=== PATIENT | female | born 1950 | race American Indian/Alaskan Native ===

== ENCOUNTER 2017-08-02 16:52 | Emergency (ER) | payer OTHER ==
[2017-08-02 17:42] VITALS: BP 152/100
[2017-08-02 18:59] LABS: Basophils # (Auto) 0.1 K/mm3 (0.0-0.1); Basophils % (Auto) 0.6 % (0.0-1.8); Eosinophils # (Auto) 0.2 K/mm3 (0.0-0.4); Eosinophils % (Auto) 2.1 % (0.0-4.3); Hematocrit 39.4 % (30.3-42.9); Hemoglobin 12.5 gm/dl (10.1-14.3); Lymphocytes # (Auto) 4.2 K/mm3 (1.2-5.4); Lymphocytes % (Auto) 47.7 % (13.4-35.0); Mean Corpuscular HGB Conc 32 % (30-34); Mean Corpuscular Hemoglobin 30 pg (28-32); Mean Corpuscular Volume 94 fl (79-97); Monocytes # (Auto) 0.9 K/mm3 (0.0-0.8); Monocytes % (Auto) 10.8 % (0.0-7.3); Platelet Count 294 K/mm3 (140-440); Red Blood Count 4.21 M/mm3 (3.65-5.03)
[2017-08-02 19:23] LABS: BUN/Creatinine Ratio 10; Blood Urea Nitrogen 8 mg/dL (7-17); Calcium 9.8 mg/dL (8.4-10.2); Hemolysis Index 20
== END 2017-08-02 20:50 | disposition left against medical advice (07) ==
LOC: ED 16:52
DX: J11.1 Influenza due to unidentified influenza virus with other respiratory manifestations (principal); Z53.21 Procedure and treatment not carried out due to patient leaving prior to being seen by health care provider
CPT/HCPCS: 36415; 80048; 84484; 85025; 93005; 93010

== ENCOUNTER 2018-01-15 22:19 | Emergency (ER) | payer MEDICARE, OTHER ==
[2018-01-15 22:39] VITALS: BP 166/86
[2018-01-15] MEDS ORDERED: BOOSTRIX IM ONE (22:56)
--- NOTE | 2018-01-15 22:58 | Emergency Department Report ---
ED General Adult HPI - General Chief complaint: Head Injury Stated complaint: FALL/HEAD PAIN Time Seen by Provider: 01/15/18 22:40 Source: patient, family, EMS (ems notes not available at time of chart dictation) Mode of arrival: Stretcher Limitations: No Limitations - History of Present Illness Initial comments: This is a 67-year-old female who is not known to this provider previously, who presents to the ER after mechanical trip and fall. The patient denies symptoms prior to the fall. The patient indicates that while falling, she stretched her right thumb. She also landed on her right temporal region. She landed on the right side of her head. She denies midline neck pain, chest pain, abdominal pain, shortness of breath, weakness, numbness, ataxia. The patient can't recall her last tetanus vaccination. She only takes aspirin. -: Sudden Location: head, right, upper extremity Radiation: non-radiation Quality: aching Consistency: constant Improves with: rest Worsens with: movement Associated Symptoms: headaches. denies: confusion, chest pain, cough, diaphoresis, fever/chills, loss of appetite, malaise, nausea/vomiting, shortness of breath, syncope, weakness - Related Data Home Medications Medication Instructions Recorded Confirmed Last Taken B12/Levomefolate Calcium/B-6 1 each PO QDAY 06/01/14 02/23/16 1 Day Ago [Foltx Tablet] ~02/21/16 Hydralazine HCl [hydrALAZINE] 75 mg PO TID 06/01/14 02/23/16 1 Day Ago ~02/21/16 Acetaminophen [Tylenol] 500 mg PO BID 02/22/16 02/23/16 1 Day Ago ~02/21/16 Aspirin [Aspirin TAB] 325 mg PO QDAY 02/22/16 02/23/16 1 Day Ago ~02/21/16 HYDROcodone/APAP 10-325 [[place] 1 each PO BID 02/22/16 02/23/16 1 Day Ago 10/325] ~02/21/16 Previous Rx's Medication Instructions Recorded Last Taken Type Acetaminophen [Tylenol Arthritis] 650 mg PO Q6HR PRN #30 tablet.er 01/16/18 Unknown Rx Ibuprofen [Motrin] 600 mg PO Q8H PRN #30 tablet 01/16/18 Unknown Rx Allergies Allergy/AdvReac Type Severity Reaction Status Date / Time No Known Allergies Allergy Verified 01/15/18 22:39 ED Review of Systems ROS: Stated complaint: FALL/HEAD PAIN Other details as noted in HPI Constitutional: denies: fever Eyes: denies: eye discharge ENT: denies: epistaxis Respiratory: denies: cough Cardiovascular: denies: chest pain Gastrointestinal: denies: abdominal pain Musculoskeletal: arthralgia, myalgia Skin: lesions Neurological: headache. denies: weakness, numbness, paresthesias, confusion ED Past Medical Hx - Past Medical History Previous Medical History?: Yes Hx Hypertension: Yes Hx Heart Attack/AMI: No Hx Congestive Heart Failure: No Hx Diabetes: Yes (borderline) Hx Deep Vein Thrombosis: No Hx Pulmonary Embolism: No Hx GERD: No Hx Liver Disease: No Hx Renal Disease: No Hx Sickle Cell Disease: No Hx Arthritis: Yes Hx Headaches / Migraines: No Hx Seizures: No Hx Kidney Stones: No Hx Asthma: No Hx COPD: Yes Hx Tuberculosis: No Hx Dementia: No Hx HIV: No Additional medical history: Abdomial aneurysm, Pituitary Tumor. cirrhosis, bronchitis - Surgical History Hx Coronary Stent: No Hx Open Heart Surgery: Yes (tumor removed from heart. No bypass) Hx Pacemaker: No Hx Internal Defibrillator: No Hx Cholecystectomy: Yes Hx Appendectomy: No Hx Breast Surgery: No Additional Surgical History: spleenectomy, knee replacement, arm surgery, bilateral total knee replacement - Social History Smoking Status: Former Smoker Substance Use Type: None - Medications Home Medications: Home Medications Medication Instructions Recorded Confirmed Last Taken Type B12/Levomefolate Calcium/B-6 1 each PO QDAY 06/01/14 02/23/16 1 Day Ago History [Foltx Tablet] ~02/21/16 Hydralazine HCl [hydrALAZINE] 75 mg PO TID 06/01/14 02/23/16 1 Day Ago History ~02/21/16 Acetaminophen [Tylenol] 500 mg PO BID 02/22/16 02/23/16 1 Day Ago History ~02/21/16 Aspirin [Aspirin TAB] 325 mg PO QDAY 02/22/16 02/23/16 1 Day Ago History ~02/21/16 HYDROcodone/APAP 10-325 [[place] 1 each PO BID 02/22/16 02/23/16 1 Day Ago History 10/325] ~02/21/16 Acetaminophen [Tylenol Arthritis] 650 mg PO Q6HR PRN #30 tablet.er 01/16/18 Unknown Rx Ibuprofen [Motrin] 600 mg PO Q8H PRN #30 tablet 01/16/18 Unknown Rx ED Physical Exam - General Limitations: No Limitations General appearance: alert, in no apparent distress - Head Head exam: Present: normocephalic. Absent: atraumatic (there is right temporal hematoma with a punctate skin avulsion) - Eye Eye exam: Present: normal appearance, PERRL, EOMI, other (visual acuity intact to finger counting, color perception, reading at a close distance). Absent: nystagmus - ENT ENT exam: Present: normal exam, normal orophraynx, mucous membranes moist, TM's normal bilaterally (there is no hemotympanum. There is no nasal septal hematoma ), normal external ear exam - Neck Neck exam: Present: normal inspection, full ROM. Absent: tenderness, meningismus - Respiratory Respiratory exam: Present: normal lung sounds bilaterally. Absent: respiratory distress, chest wall tenderness - Cardiovascular Cardiovascular Exam: Present: regular rate, normal rhythm, normal heart sounds. Absent: systolic murmur, diastolic murmur, rubs, gallop - GI/Abdominal GI/Abdominal exam: Present: soft. Absent: distended, tenderness, guarding, rebound, rigid, pulsatile mass - Extremities Exam Extremities exam: Present: normal inspection, tenderness (there is tenderness at the base of the right thumb. Opposition is intact. Thumb abduction and extension are limited secondary to pain), normal capillary refill, other (2+ pulses noted in the bilateral upper, lower extremities. Compartments soft. No long bony tenderness. The pelvis is stable.). Absent: pedal edema, joint swelling, calf tenderness - Back Exam Back exam: Present: normal inspection, full ROM. Absent: tenderness, CVA tenderness (R), paraspinal tenderness, vertebral tenderness - Neurological Exam Neurological exam: Present: alert, oriented X3, CN II-XII intact, other ( Extraocular movements intact. Tongue midline. No facial droop. Facial sensation intact to light touch in the V1, V2, V3 distribution bilaterally. 5 and 5 strength in 4 extremities.. Sensation is intact to light touch in 4 extremities.). Absent: motor sensory deficit - Psychiatric Psychiatric exam: Present: normal affect, normal mood - Skin Skin exam: Present: warm, abrasion, ecchymosis. Absent: rash ED Course Vital Signs 01/15/18 22:20 Temperature 98.6 F Pulse Rate 76 Respiratory 18 Rate Blood Pressure 166/86 O2 Sat by Pulse 96 Oximetry - Reevaluation(s) Reevaluation #1: 01/15/18 23:05 Differential diagnosis, including but not limited to: Intracranial injury, cervical spine injury, hematoma, ligamentous injury, hand fracture, hand dislocation Assessment and plan: 67-year-old female status post mechanical fall. She is clinically sober at this time. She has a GCS of 15. There is no midline cervical spine tenderness. She also has right hand/thumb pain with a possible hyperextension mechanism. She declines pain medication. She has a punctate lesion on her right temporal region and does not want sutures. Noncontrast CT scan of the brain and cervical spine pending. Tetanus vaccination is pending. X-ray of the right hand and wrist pending, along with placement of a right wrist splints. Assuming no serious injuries, patient will be discharged home with her . She'll need to follow up with orthopedics/hand for her right upper extremity wound. I also discussed signs and symptoms of concussion with the patient's . He verbalized understanding. I also discussed return precautions, and verbalize understanding. Reevaluation #2: 01/16/18 00:15 CT scan of the brain, cervical spine negative for acute disease. X-rays of the hand, wrist showed DJD, orthopedic hardware, and proximal thumb fracture. Patient was given pain medication after her requests and will be referred to outpatient orthopedics. ED Medical Decision Making - Lab Data Vital Signs 01/15/18 22:20 Temperature 98.6 F Pulse Rate 76 Respiratory 18 Rate Blood Pressure 166/86 O2 Sat by Pulse 96 Oximetry - Radiology Data Radiology results: report reviewed, image reviewed Noncontrast CT scan of the brain, cervical spine negative for acute disease. X- ray of the right hand, right wrist demonstrated a proximal right thumb fracture with DJD. Otherwise, no obvious disease. Critical care attestation.: If time is entered above; I have spent that time in minutes in the direct care of this critically ill patient, excluding procedure time. ED Disposition Clinical Impression: Thumb injury, Head injury Disposition: DC-01 TO HOME OR SELFCARE Is pt being admited?: No Does the pt Need Aspirin: No Condition: Stable Instructions: Minor Head Injury (ED), Finger Sprain (ED) Additional Instructions: Rest, and avoid heavy lifting. Avoid strenuous physical activity. Keep the thumb splint in place. Follow up with the orthopedist within the next 5 days for repeat evaluation of the right thumb. Patient may have a ligamentous injury to the right thumb, may require occupational therapy or physical therapy. Patient should avoid contact sports, strenuous physical activities and heavy lifting. Patient also had x-rays which demonstrated mild thumb facture. Patient should engage in physical activities as she physically feels comfortable to do. The patient may have a concussion, and symptoms of concussion include lightheadedness, fatigue, forgetfulness. Patient may continue current outpatient medications. Return to the ER right away with new pain, worsening pain, migration of pain, projectile vomiting, change in mental status, confusion, weakness, numbness, inability to tolerate liquid feeds. Patient can apply warm compresses to the right temporal/forehead hematoma, wash with gentle soap and water every 12 hours, apply [id number] bacitracin, every 8-12 hours for 5 days, and take acetaminophen alternating with ibuprofen, for pain as needed. Referrals: NESS TELLO MD [Staff Physician] - 3-5 Days [facility] [Provider Group] - 3-5 Days
[2018-01-15] MEDS ORDERED: TYLENOL ONE (23:35)
[2018-01-15] MEDS ORDERED: TYLENOL PO ONE (23:41)
--- NOTE | 2018-01-15 23:49 | Cat Scan Report ---
FINAL REPORT EXAM: CT HEAD/BRAIN WO CON HISTORY: Head trauma, fall. TECHNIQUE: Non-contrast CT brain. MPR. Overall image quality is satisfactory. PRIORS: CT head dated in 02/22/2016. FINDINGS: COMMENTS: BONE - Calvarium: Intact Central skull base: Intact Temporal mastoids: No effusion Included paranasal sinuses: Well aerated and without air-fluid levels. Intracranial vascular calcifications. CSF SPACES - Ventricles: Prominent. Subarachnoid spaces: Prominent. BRAIN - Mild periventricular variable white matter changes. Additional hypodensities in the anterior limb of the right internal capsule. No acute intracranial bleed, large vessel territory infarct or mass. Right temporal subcutaneous soft tissue contusion/hematoma is noted. IMPRESSION: 1. Right temporal soft tissue hematoma/contusion. No acute intracranial pathology. 2. Aging brain morphology.
[2018-01-15] MEDS ORDERED: MOTRIN PO ONE (23:56)
--- NOTE | 2018-01-15 23:56 | Cat Scan Report ---
FINAL REPORT EXAM: CT CERVICAL SPINE WO CON HISTORY: Fall. TECHNIQUE: CT evaluation was performed of the cervical spine without the use of intravenous contrast administration. Coronal and sagittal imaging also provided for interpretation. PRIORS: None. FINDINGS: CT evaluation of the cervical spine reveals no evidence of acute fracture or subluxation. Alignment within normal limits. Multilevel cervical degenerative changes are present which are most prominent at C4-C5 and C5-C6 with moderate osseous left neural foraminal narrowing at C4-C5 on the left and mild bilateral osseous foraminal narrowing at C5-C6. There is no high-grade spinal canal stenosis. The atlanto dens interval is preserved. There is no significant prevertebral soft tissue swelling. Atherosclerotic vascular calcifications noted. IMPRESSION: No CT evidence of acute fracture of the cervical spine. Multilevel moderate cervical degenerative changes most prominent at C4-C5 and C5-C6.
--- NOTE | 2018-01-16 00:01 | XRay Report ---
FINAL REPORT EXAM: XR HAND 3+V RT HISTORY: Fall, hand pain. TECHNIQUE: Three views of the right hand: AP, oblique and lateral projections. PRIORS: None. FINDINGS: Surgical changes from previous volar plate screw fixation of the distal radius are noted. Hardware intact. There is a mildly comminuted fracture of the thumb, distal phalanx base which is intra-articular. Multilevel moderate degenerative changes of the thumb base and interphalangeal joints. IMPRESSION: Intra-articular, mildly comminuted fracture of the thumb distal phalanx base with concomitant soft tissue swelling. Surgical changes from previous distal radius fixation. Moderate degenerative changes at the thumb base and interphalangeal joints.
--- NOTE | 2018-01-16 00:03 | XRay Report ---
FINAL REPORT EXAM: XR WRIST 3+V RT HISTORY: Fall, right wrist pain. TECHNIQUE: Six views of the right wrist: AP, oblique and lateral projections. PRIORS: None. FINDINGS: Mildly comminuted, intra-articular fracture of the thumb distal phalanx base. Volar plate and screw fixation of the distal radius is noted. Hardware is intact. Multifocal degenerative changes the thumb base and interphalangeal joints. The carpal arcs and intercarpal spaces are overall maintained. Mild degenerative changes of the distal radial ulnar joint. IMPRESSION: Mildly comminuted, intra-articular fracture of the thumb distal phalanx base. Volar plate and screw fixation of the distal radius. No evidence of hardware complication. No acute wrist fracture. Multifocal degenerative changes as described above.
== END 2018-01-16 00:24 | disposition home or self-care (01) ==
LOC: ED 22:19
DX: S69.91XA Unspecified injury of right wrist, hand and finger(s), initial encounter (principal); S09.90XA Unspecified injury of head, initial encounter; I10 Essential (primary) hypertension; M19.90 Unspecified osteoarthritis, unspecified site; J44.9 Chronic obstructive pulmonary disease, unspecified; Z90.49 Acquired absence of other specified parts of digestive tract; Z87.891 Personal history of nicotine dependence
CPT/HCPCS: 70450; 72125; 90471; 90715

== ENCOUNTER 2018-09-18 10:53 | Emergency (ER) | payer MEDICARE, OTHER ==
[2018-09-18] MEDS ORDERED: PERCOCET 5/325 PO ONE (11:32)
--- NOTE | 2018-09-18 11:44 | Emergency Department Report ---
ED Lower Extremity HPI - General Chief Complaint: Fall Stated Complaint: (R) KNEE PAIN Time Seen by Provider: 09/18/18 11:28 Source: EMS Mode of arrival: Stretcher Limitations: Physical Limitation - History of Present Illness Initial Comments: 68-year-old female with a history of bilateral total knee replacement presents to the hospital after fall. Patient was signed without shoes that her legs behind her in and she ended up hyper flexing the knee and heard a popping sensation. She denies head injury or syncope. She has been unable to ambulate since. She reports 6 right knee pain that is constant, worse with palpation and movement, no alleviating factors. - Related Data Home Medications Medication Instructions Recorded Confirmed Last Taken B12/Levomefolate Calcium/B-6 1 each PO QDAY 06/01/14 02/23/16 1 Day Ago [Foltx Tablet] ~02/21/16 Hydralazine HCl [hydrALAZINE] 75 mg PO TID 06/01/14 02/23/16 1 Day Ago ~02/21/16 Acetaminophen [Tylenol] 500 mg PO BID 02/22/16 02/23/16 1 Day Ago ~02/21/16 Aspirin [Aspirin TAB] 325 mg PO QDAY 02/22/16 02/23/16 1 Day Ago ~02/21/16 HYDROcodone/APAP 10-325 [[place] 1 each PO BID 02/22/16 02/23/16 1 Day Ago 10/325] ~02/21/16 Previous Rx's Medication Instructions Recorded Last Taken Type Acetaminophen [Tylenol Arthritis] 650 mg PO Q6HR PRN #30 tablet.er 01/16/18 Unknown Rx Ibuprofen [Motrin] 600 mg PO Q8H PRN #30 tablet 01/16/18 Unknown Rx Allergies Allergy/AdvReac Type Severity Reaction Status Date / Time No Known Allergies Allergy Verified 01/15/18 22:39 ED Review of Systems ROS: Stated complaint: (R) KNEE PAIN Other details as noted in HPI Comment: All other systems reviewed and negative ED Past Medical Hx - Past Medical History Hx Hypertension: Yes Hx Heart Attack/AMI: No Hx Congestive Heart Failure: No Hx Diabetes: Yes (borderline) Hx Deep Vein Thrombosis: No Hx Pulmonary Embolism: No Hx GERD: No Hx Liver Disease: No Hx Renal Disease: No Hx Sickle Cell Disease: No Hx Arthritis: Yes Hx Headaches / Migraines: No Hx Seizures: No Hx Kidney Stones: No Hx Asthma: No Hx COPD: Yes Hx Tuberculosis: No Hx Dementia: No Hx HIV: No Additional medical history: Abdomial aneurysm, Pituitary Tumor. cirrhosis, bronchitis - Surgical History Hx Coronary Stent: No Hx Open Heart Surgery: Yes (tumor removed from heart. No bypass) Hx Pacemaker: No Hx Internal Defibrillator: No Hx Cholecystectomy: Yes Hx Appendectomy: No Hx Breast Surgery: No Additional Surgical History: spleenectomy, knee replacement, arm surgery, bilateral total knee replacement - Social History Smoking Status: Never Smoker - Medications Home Medications: Home Medications Medication Instructions Recorded Confirmed Last Taken Type B12/Levomefolate Calcium/B-6 1 each PO QDAY 06/01/14 02/23/16 1 Day Ago History [Foltx Tablet] ~02/21/16 Hydralazine HCl [hydrALAZINE] 75 mg PO TID 06/01/14 02/23/16 1 Day Ago History ~02/21/16 Acetaminophen [Tylenol] 500 mg PO BID 02/22/16 02/23/16 1 Day Ago History ~02/21/16 Aspirin [Aspirin TAB] 325 mg PO QDAY 02/22/16 02/23/16 1 Day Ago History ~02/21/16 HYDROcodone/APAP 10-325 [[place] 1 each PO BID 02/22/16 02/23/16 1 Day Ago History 10/325] ~02/21/16 Acetaminophen [Tylenol Arthritis] 650 mg PO Q6HR PRN #30 tablet.er 01/16/18 Unknown Rx Ibuprofen [Motrin] 600 mg PO Q8H PRN #30 tablet 01/16/18 Unknown Rx ED Physical Exam - General Limitations: Physical Limitation - Other Other exam information: General: No limitations, patient is alert in no acute distress Head exam: Atraumatic, normocephalic Eyes exam: Normal appearance, pupils equal reactive to light, extraocular move ments intact ENT: Moist mucous membrane, normal oropharynx Neck exam: Normal inspection, full range of motion, no meningismus nontender Respiratory exam: Clear to auscultation bilateral, no wheezes, rales, crackles Cardiovascular: Normal rate and rhythm Abdomen: Soft, nondistended, and nontender, with normal bowel sounds, no rebound, or guarding Extremity: Right leg exam: Previous surgical scar noted to anterior right knee. She denies swelling to the knee. Maximum tenderness at the lateral knee joint and area lateral and superior to patella. 2+ DP pulses. Pain with movement in any direction. Back: Normal Inspection, full range of motion, no tenderness Neurologic: Alert, oriented x3, cranial nerves intact, no motor or sensory deficit Psychiatric: normal affect, normal mood Skin: Warm, dry, intact ED Course Vital Signs 09/18/18 09/18/18 09/18/18 11:22 14:28 14:32 Temperature 98.8 F Pulse Rate 84 Respiratory 18 18 Rate Blood Pressure 132/74 O2 Sat by Pulse 99 Oximetry - Consultations Consultation #1: 09/18/18 13:35 case d/w [facility] transfer since we do not have ortho contract officer 09/18/18 14:[address] Seharer (as per transfer service) for [facility] transfer ED Lower Extremity MDM - Radiology Data Radiology results: report reviewed PROCEDURE: XR KNEE 3V RT TECHNIQUE: 3 views of the right knee. HISTORY: right knee pain COMPARISON: None FINDINGS: There is a knee prosthesis. There is a fracture of the distal femur above the prosthesis. There is posterolateral displacement and posterior angulation. There is some ill-definition and possible defect of the quadriceps tendon anteriorly which is suspicious for a quadriceps tendon tear. IMPRESSION: Displaced angulated fracture of distal femur just above the prosthesis. Also concern for quadriceps tendon tear. - Medical Decision Making Case discussed with [facility] transfer service the patient accepted since we do not have orthopedic physicians available today. Patient had a strong DP pulse before and after knee immobilizer was placed. Patient received Percocet and several doses of morphine for pain. - Differential Diagnosis fracture, contusion, sprain Critical Care Time: No Critical care attestation.: If time is entered above; I have spent that time in minutes in the direct care of this critically ill patient, excluding procedure time. ED Disposition Clinical Impression: Closed fracture of right distal femur Disposition: DC/TX-70 ANOTHER TYPE HLTHCARE Is pt being admited?: No Does the pt Need Aspirin: No Condition: Stable Time of Disposition: 14:46 (Transfer to [facility] Dr Shearer)
--- NOTE | 2018-09-18 13:17 | XRay Report ---
PROCEDURE: XR KNEE 3V RT TECHNIQUE: 3 views of the right knee. HISTORY: right knee pain COMPARISON: None FINDINGS: There is a knee prosthesis. There is a fracture of the distal femur above the prosthesis. There is po sterolateral displacement and posterior angulation. There is some ill-definition and possible defect of the quadriceps tendon anteriorly which is suspicious for a quadriceps tendon tear. IMPRESSION: Displaced angulated fracture of distal femur just above the prosthesis. Also concern for quadriceps tendon tear. This document is electronically signed by Tati Hanson MD., September 18 2018 01:15:31 PM ET
[2018-09-18] MEDS ORDERED: ZOFRAN IV ONE (14:08)
[2018-09-18] MEDS ORDERED: MORPHINE IV ONE ×2 (14:08→17:15)
[2018-09-18 17:46] VITALS: BP 151/97
== END 2018-09-18 17:45 | disposition other institution (70) ==
LOC: ED 10:53
DX: S72.401A Unspecified fracture of lower end of right femur, initial encounter for closed fracture (principal); I10 Essential (primary) hypertension; E11.9 Type 2 diabetes mellitus without complications; M19.90 Unspecified osteoarthritis, unspecified site; J44.9 Chronic obstructive pulmonary disease, unspecified; Z90.49 Acquired absence of other specified parts of digestive tract; Z90.81 Acquired absence of spleen; W01.0XXA Fall on same level from slipping, tripping and stumbling without subsequent striking against object, initial encounter; Y93.89 Activity, other specified; Y92.009 Unspecified place in unspecified non-institutional (private) residence as the place of occurrence of the external cause; Y99.8 Other external cause status
CPT/HCPCS: 29505; 73562; 96374; 96375; 96376; 99285; J2270; J2405